=== PATIENT | female | born 1965 | race Caucasian/White ===

== ENCOUNTER → 2016-10-05 | Outpatient (CLI) | payer BC ==
--- NOTE | 2016-10-05 16:43 | CT ---
EXAMINATION TYPE: CT abdomen pelvis wo con DATE OF EXAM: 10/05/2016 3:05 PM COMPARISON: NONE INDICATION: Left lower quadrant pain and left flank pain x 3 weeks. Microscopic hematuria. DLP: 902.00 mGycm, Automated exposure control for dose reduction was used. CONTRAST: None Study performed with Oral Contrast TECHNIQUE: Axial images were obtained from above the diaphragm to the pubic rami in the axial plane a t 5 mm thick sections. Reconstructed images are reviewed on the computer in the coronal plane. FINDINGS: Limited CT sections are obtained the lung bases. The lung bases are clear. CT ABDOMEN: Liver: Normal Spleen: Normal Pancreas: Normal Adrenal glands: The adrenal glands are normal. Gallbladder: Normal Kidneys: No masses are evident. No hydronephrosis is present. No cysts are present. No renal stone s are evident. Aorta: Vascular calcification is within the aorta. Inferior vena cava: Normal. CT PELVIS: Some beam hardening artifact is present from L5-S1 pedicle screws. Loops of bowel within the abdomen and pelvis are normal. There are loops of bowel which are incom pletely distended or lack oral contrast limiting their evaluation. Few scattered diverticuli may be w ithin the sigmoid colon. Appendix: Normal as visualized. Urinary bladder: Normal. Genitourinary structures: Uterus is normal. Adnexal regions are clear. No free fluid is within the pe lvis. Osseous structures: No suspicious lytic or sclerotic lesions. IMPRESSIONS: 1. Mild diverticulosis without evidence of acute diverticulitis.
== END | disposition home or self-care (01) ==
LOC: RADCTMAIN 13:51
PROVIDERS: ATTEND Family Medicine
DX: K57.30 Diverticulosis of large intestine without perforation or abscess without bleeding (principal)
CPT/HCPCS: 74176

== ENCOUNTER 2017-09-01 19:12 | Emergency (ER) | payer BC ==
[2017-09-01 19:28] VITALS: BP 135/82; PULSE 97; RESP 16; TEMP 97.3
[2017-09-01] MEDS ORDERED: HYDROmorphone 0.5 MG/0.5 ML SYRINGE IM STA (19:52)
--- NOTE | 2017-09-01 20:01 | ED ---
Upper Extremity HPI - General Chief Complaint: Extremity Injury, Upper Stated Complaint: Fall/wrist pain Time Seen by Provider: 09/01/17 19:49 Source: patient, RN notes reviewed Mode of arrival: ambulatory Limitations: no limitations - History of Present Illness Initial Comments: This is a 52-year-old female who presents to the emergency department with chief complaint of left wrist injury. Patient states that an hour ago she was getting out of the car and slipped on a patch of ice. She states that she has chronic back pain so to save her back she landed on an outstretched hand. Patient states she feels like her wrist is deformed. She denies any other injuries. Denies fever, chills, chest pain, shortness of breath, abdominal pain , nausea or vomiting, constipation or diarrhea, dysuria or hematuria, numbness or tingling, headache or vision changes. - Related Data Home Medications Medication Instructions Recorded Confirmed traMADol HCl [Ultram] 50 mg PO DIRECTED PRN 07/15/14 12/28/15 Diazepam [Valium] 10 mg PO BID 12/22/15 12/28/15 HYDROcodone/APAP 10-325MG [[place] 1 tab PO DIRECTED PRN 12/22/15 12/28/15 10-325] Levothyroxine Sodium [Synthroid] 25 mcg PO DAILY 12/22/15 12/28/15 Previous Rx's Medication Instructions Recorded HYDROcodone/APAP 10-325MG [[place] 1 each PO Q6H PRN #15 tab 12/29/15 10-325] Allergies Allergy/AdvReac Type Severity Reaction Status Date / Time No Known Allergies Allergy Verified 12/28/15 13:51 Review of Systems ROS Statement: Those systems with pertinent positive or pertinent negative responses have been documented in the HPI. ROS Other: All systems not noted in ROS Statement are negative. Past Medical History Past Medical History: Asthma, Pneumonia, Syncope Additional Past Medical History / Comment(s): BLADDER DOES'NT EMPTY ALL THE WAY. History of Any Multi-Drug Resistant Organisms: None Reported Past Surgical History: Back Surgery, Section, Orthopedic Surgery, Tubal Ligation Additional Past Surgical History / Comment(s): CARPAL TUNNEL SX JACK, BACK HAS PLATES/SCREWS IN PLACE, BREAST IMPLANTS, Past Anesthesia/Blood Transfusion Reactions: No Reported Reaction Past Psychological History: No Psychological Hx Reported Smoking Status: Current some day smoker Past Alcohol Use History: None Reported Past Drug Use History: None Reported - Past Family History Father Family Medical History: Cancer, Diabetes Mellitus Additional Family Medical History / Comment(s): COLON CA Mother Family Medical History: Cancer Additional Family Medical History / Comment(s): MELANOMA General Exam - General Exam Comments Initial Comments: General: Awake and alert, well-developed; in no apparent distress. HEENT: Head atraumatic, normocephalic. Pupils are equal, round and reactive to light. Extraocular movements intact. Oropharynx moist without erythema or exudate. Neck: Supple. Normal ROM. Cardiovascular: Regular rate and rhythm. No murmurs, rubs or gallops. Chest symmetrical. Respiratory: Lungs clear to auscultation bilaterally. No wheezes, rales or rhonchi. Normal respiratory effort with no use of accessory muscles. Musculoskeletal: Limited range of motion of the left wrist due to pain. There is generalized soft tissue swelling and tenderness with mild obvious deformity of left wrist. No snuffbox tenderness. Sensation is intact. Radial pulses are 2+ equal and palpable bilaterally. Skin: [place], warm and dry without rashes or lesions. Neurological: Alert and oriented x3. CN II-XII grossly intact. Speech is fluent and answers are appropriate. No focal neuro deficits. Psychiatric: Normal mood and affect. No overt signs of depression or anxiety noted. Limitations: no limitations Course Vital Signs 09/01/17 19:25 Temperature 97.3 F L Pulse Rate 97 Respiratory 16 Rate Blood Pressure 135/82 O2 Sat by Pulse 100 Oximetry Procedures - Orthopedic Splinting/Casting Injury #1 Side: left Upper Extremity Injury Location: wrist Upper Extremity Immobilizer: volar splint, synthetic pre-padded splint Additional Comments: Tolerated well. Neurovascularly intact. Medical Decision Making - Medical Decision Making This is a 52-year-old female who presents to the emergency department with chief complaint of left wrist injury. X-ray revealed a comminuted, displaced fracture of the left distal radius. Patient was given pain medication while in the emergency department. She states that she has her own pain medication and anti-inflammatories at home. The splint was placed and patient tolerated well without complication. She is neurovascularly intact. Patient is provided a referral to orthopedics to follow up tomorrow. Patient is in agreement and voices understanding. All questions were answered. - Radiology Data Radiology results: report reviewed Left hand x-ray impression: Comminuted, apex volar angulated, dorsally displaced , intra-articular distal radial fracture with overlying soft tissue swelling. X-ray left forearm impression: Re-demonstration of previously described a left distal radial fracture on the left hand dictation of the same date. No additional fracture. Disposition Clinical Impression: Distal radius fracture, left Disposition: HOME SELF-CARE Condition: Good Instructions: Arm Fracture in Adults (ED) Additional Instructions: Follow-up with [facility] tomorrow morning. Please follow up with primary care provider within 1-2 days. Return to emergency department if symptoms should worsen or any concerns arise. Referrals: Mack Tello DO [Primary Care Provider] - 1-2 days [facility] PAC [PHYSICIAN APPRENTICE [facility]] - 1-2 days Time of Disposition: 21:11
--- NOTE | 2017-09-01 20:08 | XR ---
EXAMINATION TYPE: XR hand complete LT DATE OF EXAM: 09/01/2017 CLINICAL HISTORY: Distal radial fracture after fall today TECHNIQUE: Frontal, lateral and oblique images of the left wrist are obtained. COMPARISON: None FINDINGS: There is a comminuted, apex volar angulated, minimally dorsally displaced, intra-articular fracture of the distal radius. Sclerotic oval density distal to the ulnar styloid appears well-cortic ated and may relate to remote injury. No additional acute fracture is seen. Extensive soft tissue swe lling is seen over the wrist. Dorsal displacement is 7 mm of the most dorsal fracture fragment. IMPRESSION: Comminuted, apex volar angulated, dorsally displaced, intra-articular distal radial fract ure with overlying soft tissue swelling.
--- NOTE | 2017-09-01 20:52 | XR ---
EXAMINATION TYPE: XR forearm LT DATE OF EXAM: 09/01/2017 CLINICAL HISTORY: Left TECHNIQUE: Two views of the left forearm are obtained. COMPARISON: 09/01/2017 left hand radiograph. FINDINGS: There is redemonstration of the distal comminuted left radial fracture with overlying soft tissue swelling as discussed on the left hand radiograph of the same date. No additional fracture is seen on the left forearm. IMPRESSION: Redemonstration of previously described left distal radial fracture on the left hand dict ation of the same date. No additional fracture.
== END 2017-09-01 21:12 | disposition home or self-care (01) ==
LOC: EC 19:12
DX: S52.502A Unspecified fracture of the lower end of left radius, initial encounter for closed fracture (principal); F17.200 Nicotine dependence, unspecified, uncomplicated; Z79.899 Other long term (current) drug therapy; W00.0XXA Fall on same level due to ice and snow, initial encounter; Y93.89 Activity, other specified; Y92.009 Unspecified place in unspecified non-institutional (private) residence as the place of occurrence of the external cause
CPT/HCPCS: 73090; 73130; 99283; 29125; 96372; J1170

== ENCOUNTER 2019-09-18 06:58 | Emergency (ER) | payer OTHER ==
[2019-09-18 07:07] VITALS: BP 158/92; PULSE 76; RESP 16; TEMP 98.2
[2019-09-18] MEDS ORDERED: KETOROLAC 60 MG/2 ML VIAL IM STA (07:22)
[2019-09-18] MEDS ORDERED: DIAZEPAM 5 MG TAB PO STA (07:22)
--- NOTE | 2019-09-18 07:26 | ED ---
Neck Injury/Pain HPI - General Chief Complaint: Neck Pain/Injury Stated Complaint: Neck Pain Time Seen by Provider: 09/18/19 07:08 Mode of arrival: ambulatory Limitations: no limitations - History of Present Illness Initial Comments: Patient is a 54-year-old female presenting to the emergency Department with complaints of neck and low back pain that has been steadily increasing over the past few days. Patient states she has a chronic history of low back and neck pain. She did have a spinal surgery years ago. She denies any recent falls or trauma. She states that she recently got her insurance back and does have an appointment to see Dr. Herndon on Saturday. Patient states though she can no longer take the pain. She does have to work 3 days before she sees a spine doc tor and is really worried that she will be able to get through her work. She denies any numbness and tingling into her lower extremities, no bowel or bladder incontinence. She denies fever, chest pain, shortness of breath. She has no other complaints at this time. Upon arrival to the ER her vitals are stable. - Related Data Home Medications Medication Instructions Recorded Confirmed traMADol HCl [Ultram] 50 mg PO DIRECTED PRN 07/15/14 12/28/15 Diazepam [Valium] 10 mg PO BID 12/22/15 12/28/15 HYDROcodone/APAP 10-325MG [[place] 1 tab PO DIRECTED PRN 12/22/15 12/28/15 10-325] Levothyroxine Sodium [Synthroid] 25 mcg PO DAILY 12/22/15 12/28/15 Previous Rx's Medication Instructions Recorded HYDROcodone/APAP 10-325MG [[place] 1 each PO Q6H PRN #15 tab 12/29/15 10-325] Diazepam [Valium] 5 mg PO Q8HR PRN 3 Days #9 tab 09/18/19 Allergies Allergy/AdvReac Type Severity Reaction Status Date / Time No Known Allergies Allergy Verified 09/18/19 07:07 Review of Systems ROS Statement: Those systems with pertinent positive or pertinent negative responses have been documented in the HPI. ROS Other: All systems not noted in ROS Statement are negative. Past Medical History Past Medical History: Asthma, Pneumonia, Syncope Additional Past Medical History / Comment(s): BLADDER DOES'NT EMPTY ALL THE WAY. History of Any Multi-Drug Resistant Organisms: None Reported Past Surgical History: Back Surgery, Section, Orthopedic Surgery, Tubal Ligation Additional Past Surgical History / Comment(s): CARPAL TUNNEL SX JACK, BACK HAS PLATES/SCREWS IN PLACE, BREAST IMPLANTS, Past Anesthesia/Blood Transfusion Reactions: No Reported Reaction Past Psychological History: No Psychological Hx Reported Smoking Status: Current every day smoker Past Alcohol Use History: None Reported Past Drug Use History: None Reported - Past Family History Father Family Medical History: Cancer, Diabetes Mellitus Additional Family Medical History / Comment(s): COLON [place] Mother Family Medical History: Cancer Additional Family Medical History / Comment(s): MELANOMA General Exam - General Exam Comments Initial Comments: GENERAL: Well-appearing, well-nourished and in no acute distress. HEAD: Atraumatic, normocephalic. EYES: Pupils equal round and reactive to light, extraocular movements intact, sclera anicteric, conjunctiva are normal. ENT: TMs normal, nares patent, oropharynx clear without exudates. Moist mucous membranes. NECK: Normal range of motion, supple without lymphadenopathy or JVD. LUNGS: Breath sounds clear to auscultation bilaterally and equal. No wheezes rales or rhonchi. HEART: Regular rate and rhythm without murmurs, rubs or gallops. ABDOMEN: Soft, nontender, normoactive bowel sounds. No guarding, no rebound. No masses appreciated. : Deferred EXTREMITIES: Normal range of motion, no pitting or edema. No clubbing or cyanosis. 5 out of 5 strength lower and upper extremities. Sensation is equal in bilateral lower and upper extremities. Patient does have pain in the cervical, thoracic, lumbar paraspinals. Patient has full cervical and trunk range of motion. NEUROLOGICAL: Normal speech, normal gait. PSYCH: Normal mood, normal affect. SKIN: Warm, Dry, normal turgor, no rashes or lesions noted. Limitations: no limitations Course Vital Signs 09/18/19 07:01 Temperature 98.2 F Pulse Rate 76 Respiratory 16 Rate Blood Pressure 158/92 O2 Sat by Pulse 98 Oximetry Medical Decision Making - Medical Decision Making Patient is a 54-year-old female presenting with acute on chronic neck and low back pain. No red flag symptoms. X-rays reveal no acute fractures dislocations. I discussed these findings with the patient. Patient will be given a few tablets of Valium to help with muscle spasms. She will continue to alternate between Tylenol and Motrin for pain relief. Patient states she does have a prescription for tramadol at home that she will take if pain is severe. She will follow-up with Dr. Bhatt 4 days. Patient is requesting a work note. She is stable for discharge at this time. Return parameters were discussed with the patient she verbalized understanding. Disposition Clinical Impression: Chronic neck pain, Chronic back pain Disposition: HOME SELF-CARE Condition: Stable Instructions (If sedation given, give patient instructions): Chronic Back Pain (DC) Additional Instructions: Please return to the Emergency Department if symptoms worsen or any other concerns. Follow-up with Dr. Fierro on Saturday as discussed. May alternate between Tylenol and Motrin for pain relief. May take Valium for muscle spasms. Do not drive while taking Valium. Prescriptions: Diazepam [Valium] 5 mg PO Q8HR PRN 3 Days #9 tab PRN Reason: Muscle Spasm Is patient prescribed a controlled substance at d/c from ED?: Yes When asked, does pt state using other controlled substances?: No If prescribed controlled substance>3 days was MAPS reviewed?: Prescribed <3 Days Referrals: Mack Tello DO [Primary Care Provider] - 1-2 days
--- NOTE | 2019-09-18 07:53 | XR ---
EXAMINATION TYPE: XR lumbar spine 2 or 3V DATE OF EXAM: 09/18/2019 CLINICAL HISTORY: Acute on chronic back pain TECHNIQUE: Frontal and lateral images of the lumbar spine are obtained. COMPARISON: None FINDINGS: There is surgical fixation of L5-S1. There is very minimal grade 1 anterolisthesis of L4 on L5 of 1-2 mm. There are 5 lumbar type vertebral bodies. Limbus vertebrae is seen at L4. No vertebral body height loss. IMPRESSION: No acute fracture is seen in the lumbar spine. Incidentally noted limbus vertebrae at L4 and surgical fixation of the L5-S1 with minimal grade 1 anterolisthesis of L4 on L5.
--- NOTE | 2019-09-18 07:55 | XR ---
EXAMINATION TYPE: XR cervical spine comp DATE OF EXAM: 09/18/2019 TECHNIQUE: Frontal, lateral, oblique, swimmers, and open mouth view of the cervical spine are obtaine d. HISTORY: acute on chronic pain COMPARISON: None FINDINGS: The cervical spine is visualized in its entirety from C1 thru the top of T1 level, it is s atisfactory in vertebral body heights with no acute fracture. There is grade 1 anterolisthesis of C7 on T1. Multilevel uncovertebral hypertrophy and facet arthropathy are seen creating at least moderat e neural foraminal narrowing on the right at C5-C6. The pre-vertebral soft tissue appears within norm al limits. The C1-C2 articulation is within normal limits on the open mouth view. IMPRESSION: No acute fracture is seen in the cervical spine. Grade 1 anterolisthesis of C7 on T1, [place] on a degenerative basis. Mild degenerative disc disease of the cervical spine creating at least moderate neural foraminal narrowing on the right at C5-C6.
--- NOTE | 2019-09-18 07:56 | XR ---
EXAMINATION TYPE: XR thoracic spine 2V DATE OF EXAM: 09/18/2019 CLINICAL HISTORY: Back pain, acute on chronic TECHNIQUE: Frontal, lateral, and swimmer's view of thoracic spine are obtained. COMPARISON: None. FINDINGS: Thoracic spine show satisfactory alignment without evidence of acute fracture or dislocatio n. Mild degenerative disc disease is seen as small anterior osteophytes are seen at multiple levels. Vertebral body heights and disc space heights are preserved. Visualized ribs are unremarkable. IMPRESSION: No acute fracture or dislocation is seen in the thoracic spine. Mild degenerative change of the thoracic spine.
== END 2019-09-18 08:22 | disposition home or self-care (01) ==
LOC: EC 06:58
DX: M54.2 Cervicalgia (principal); M54.5 Low back pain; G89.29 Other chronic pain; M54.6 Pain in thoracic spine; F17.200 Nicotine dependence, unspecified, uncomplicated; Z79.899 Other long term (current) drug therapy; Z96.698 Presence of other orthopedic joint implants
CPT/HCPCS: 72070; 72050; 72100; 99283; 96372; J1885

== ENCOUNTER → 2019-12-14 | Outpatient (CLI) | payer OTHER | END | disposition home or self-care (01) | LOC: LABWHC1 10:55 | PROVIDERS: ATTEND Family Medicine | DX: R50.9 Fever, unspecified (principal); R06.02 Shortness of breath; R05 Cough | CPT/HCPCS: 87635 ==